=== PATIENT | male | born 1980 ===

== ENCOUNTER 2018-06-26 10:13 | Outpatient (CLI) | payer OTHER ==
[2018-06-26 11:41] LABS: Alanine Aminotransferase 30 units/L (7-56); Albumin 5.2 g/dL (3.9-5); BUN/Creatinine Ratio 15; Blood Urea Nitrogen 12 mg/dL (9-20); Chol/HDL Ratio 4.45 %; HDL Cholesterol 51 mg/dL (40-59); Hemolysis Index 40; LDL Cholesterol,Direct 168 mg/dL (50-130)
[2018-06-26 11:57] LABS: Hematocrit TNR % (35.5-45.6); Hemoglobin TNR gm/dl (11.8-15.2); Mean Corpuscular HGB Conc TNR % (32-34); Mean Corpuscular Volume TNR fl (84-94); Platelet Count TNR K/mm3 (140-440); Red Blood Count TNR M/mm3 (3.65-5.03); Red Cell Distribution Width TNR % (13.2-15.2)
[2018-06-26 11:58] LABS: Basophils # (Auto) TNR K/mm3 (0.0-0.1); Basophils % (Auto) TNR % (0.0-1.8); Eosinophils # (Auto) TNR K/mm3 (0.0-0.4); Eosinophils % (Auto) TNR % (0.0-4.3); Lymphocytes # (Auto) TNR K/mm3 (1.2-5.4); Lymphocytes % (Auto) TNR % (13.4-35.0); Monocytes # (Auto) TNR K/mm3 (0.0-0.8); Monocytes % (Auto) TNR % (0.0-7.3)
[2018-06-26 12:02] LABS: Hepatitis C Virus Antibody Non-Reactive (NonReactive)
[2018-06-26 12:07] LABS: Hematocrit 49.8 % (35.5-45.6); Hemoglobin 16.9 gm/dl (11.8-15.2); Mean Corpuscular HGB Conc 34 % (32-34); Mean Corpuscular Volume 89 fl (84-94); Red Blood Count 5.62 M/mm3 (3.65-5.03); Red Cell Distribution Width 13.7 % (13.2-15.2)
[2018-06-26 13:51] LABS: Band Neutrophils # (Manual) 0.1 K/mm3; Basophils % (Manual) 0 % (0.0-1.8); Total Cells Counted 100
[2018-06-26 13:52] LABS: Platelet Estimate Consistent w Auto; RBC Morphology Normal
[2018-06-26 13:53] LABS: Platelet Count 278 K/mm3 (140-440)
[2018-07-04 08:26] LABS: Hepatitis B Surface Antigen Nonreactive (Negative)
== END 2018-06-26 10:14 | disposition home or self-care (01) ==
LOC: LAB 10:13
PROVIDERS: ATTEND Internal Medicine
DX: E78.5 Hyperlipidemia, unspecified (principal); E55.9 Vitamin D deficiency, unspecified; J30.1 Allergic rhinitis due to pollen; R73.03 Prediabetes
CPT/HCPCS: 36415; 80053; 80061; 80074; 82306; 83036; 84443; 85007; 85025; 86592

== ENCOUNTER 2018-11-06 08:25 | Outpatient (CLI) | payer OTHER ==
[2018-11-06 11:08] LABS: Chol/HDL Ratio 4.55 %
== END 2018-11-06 08:26 | disposition home or self-care (01) ==
LOC: LAB 08:25
PROVIDERS: ATTEND Internal Medicine
DX: E78.5 Hyperlipidemia, unspecified (principal)
CPT/HCPCS: 36415; 80061